=== PATIENT | female | born 1940 | race Two or more races ===

== ENCOUNTER 2016-10-30 21:15 | Inpatient (IN) | payer MEDICARE ==
--- NOTE | ~2016-10-30 | DS ---
Discharge Summary [facility] [address] [place]. [address] NAME: BRITTANY MUSE : 40 STATUS : DIS IN PAT#: [id number] AGE: 76 ADM/REG DATE : 10/30/16 MR#: [id number] REPORT SERV DATE: 11/05/16 DICTATED BY: UMM DEVLIN DATE: 11/04/16 REPORT STATUS : Draft TRANSCRIBED BY: MODL DATE: 11/04/16 ADMISSION DATE: 10/30/2016 DISCHARGE DATE: 11/04/2016 DISCHARGE DIAGNOSIS: 1. Acute hypercapnic respiratory failure, status post intubation expiration improving. 2. Chronic kidney disease 4, at the baseline. 3. Hypertension, medication treatment was changed to Norvasc. 4. Cerebrovascular accident, it is chronic, had stroke symptoms after her extubation, but had evaluation for the new stroke, but there is no evidence of acute stroke. 5. History of cerebrovascular disease with a history of an angioplasty on both carotid arteries, repeated ultrasound was negative for any stenosis. CONSULTANTS: Luiz Sales M.D. critical care management. HISTORY OF PRESENT ILLNESS: This is a 76-year-old, female patient, who came to the hospital and was intubated due to the hypercapnic respiratory failure and admitted in ICU. Please see dictated H and P done by Dr. Rivas. HOSPITAL COURSE: She was treated and supportive care with mechanical ventilation and improved and extubated. After the extubation, she was transferred out of the unit. She is managed with extra diuretics while she was in the ICU. Overall, she had improvement. After she was transferred out of the unit, she complains of right-sided weakness. She did have a history of CVA affecting her right side, but improved. Therefore had to go to get the new evaluation for the new stroke. Her MRI did not show any new acute stroke. Her carotid artery did not show any new stenosis. She has been treated with carotid stenosis in the past with Dr. Chow a few years ago. Overall has no evidence of acute stroke. Seen by Physical Therapy and Occupational Therapy in the hospital. Recommend outpatient physical therapy. She is back to her baseline. Therefore, she will be discharged to home with a prescription of the outpatient therapy and recommendation. DISCHARGE MEDICATIONS: 1. Norvasc 5 mg twice a day. 2. Aspirin 81 mg once a day. 3. Lipitor 80 mg once at nighttime. 4. Plavix 75 mg once a day. 5. Remeron 50 mg once at bedtime. 6. Lopressor 25 mg twice a day. 7. Protonix 20 mg twice a day. 8. Zoloft 50 mg once a day. 9. Ultram 50 mg as needed. 10.Robitussin as needed. 11.Furosemide 20 mg Friday, Friday, Friday. DISPOSITION: Patient is discharged to home with outpatient physical therapy with followup Discharge Summary [address] [facility] [address] NAME: BRITTANY MUSE : 40 STATUS : DIS IN PAT#: [id number] AGE: 76 ADM/REG DATE : 10/30/16 MR#: [id number] REPORT SERV DATE: 11/05/16 DICTATED BY: UMM DEVLIN DATE: 11/04/16 REPORT STATUS : Draft TRANSCRIBED BY: DAVID DATE: 11/04/[address] Sales and associates in the office. TIME SPENT: More than 30 minutes in coordination and education. EKL/DAVID Umm Devlin M.D. / [id number] CC: Brice Rivas M.D.
--- NOTE | ~2016-10-30 | HP ---
History And Physical [facility] [address] [place]. [address] NAME: BRITTANY MUSE : 40 STATUS : ADM IN [facility]#: [id number] AGE: 76 ADM/REG DATE : 10/30/16 MR#: [id number] REPORT SERV DATE: 10/31/16 DICTATED BY: TATE RIVAS DATE: 10/30/16 REPORT STATUS : Draft TRANSCRIBED BY: MODMary Alice DATE: 10/30/16 DATE OF ADMISSION: 10/30/2016 REASON FOR ADMISSION: Acute hypercapnic respiratory failure requiring intubation and mechanical ventilation. HISTORY OF PRESENT ILLNESS: Ms Muse is a 76-year-old woman with recent hospitalization for acute cardiac decompensation mediated by tachycardia. She was found to have tachycardia mediated congestive heart failure, had improvement with treatment of her abnormal rhythm and was discharged to home. She quit smoking during that hospitalization. Yesterday, she started having some dyspnea and today had worsening coughing, decreased alertness, significant dyspnea, and tachypnea and increased work of breathing. She was brought in by her family because of the worsening dyspnea, had increased work of breathing. Initially, she was saturating okay on supplemental oxygen, but was found to be hypercapnic, acidemic, and started desaturating on high-flow oxygen, so she was intubated and placed on mechanical ventilation and stabilized. Following stabilization, we were consulted to evaluate the patient for admission to the ICU. The patient was hypertensive, but improving, sedated, and on mechanical ventilation. PAST MEDICAL HISTORY: Significant for the recent episode of congestive heart failure. She has hypertension, diabetes, chronic kidney disease stage III, peripheral vascular disease, remote CVA, hypercholesterolemia, and acid reflux. SOCIAL HISTORY: She is a former smoker, having quit on her last hospitalization in the middle of October and up to that point had a 50- to 60-pack year history of smoking. No alcohol abuse. She has supportive family who is at her bedside. FAMILY HISTORY: Significant for diabetes and coronary artery disease. REVIEW OF SYSTEMS: Review of 10 systems was performed and is positive for what was noted above. PHYSICAL EXAMINATION: GENERAL: She is sedated, intubated, on mechanical ventilation. She is hypertensive. She seems well synchronized and comfortable with the ventilator. HEENT: Normocephalic and atraumatic. NECK: Supple. No lymphadenopathy. No JVD. CHEST: Symmetrical with good expansion bilaterally. LUNGS: Have a prolonged expiratory phase. Bilateral expiratory wheezes and occasional rare crackles. CARDIOVASCULAR: She has S1 and S2, which are regular rate and rhythm. ABDOMEN: Benign. EXTREMITIES: She has no edema, no clubbing, and no cyanosis. ASSESSMENT AND PLAN: Acute respiratory failure. She has acute on chronic hypercapnic respiratory failure complicated by some acidemia which is metabolic and respiratory, some of History And Physical [address] [address] NAME: BRITTANY MUSE : 40 STATUS : ADM IN PAT#: [id number] AGE: 76 ADM/REG DATE : 10/30/16 MR#: [id number] REPORT SERV DATE: 10/31/16 DICTATED BY: TATE RIVAS DATE: 10/30/16 REPORT STATUS : Draft TRANSCRIBED BY: DAVID DATE: 10/30/16 which are probably due to her chronic kidney disease. She has faint infiltrate on the right base. Whether it asymmetric edema or an early pneumonia is unclear, since her procalcitonin at this time is not elevated, but she does have the very long history of smoking and significant wheezing, so we will treat her for an acute exacerbation of chronic obstructive pulmonary disease as well as possible early pneumonia. We have requested series of BNPs for monitoring of possible exacerbations of her heart disease and limited echocardiogram in the morning. We have started her on systemic steroids, bronchodilators, and antibiotics for her acute exacerbation of chronic obstructive pulmonary disease and requested consultation by Nephrology in the morning because of her chronic kidney disease with worsening hyperkalemia and acidemia. DANGELO/DAVID Tate Rivas M.D. / [id number] CC: Hussein Booth DO
--- NOTE | ~2016-10-30 | CN ---
Consultation Report [facility] [address] [place]. [address] NAME: BRITTANY MUSE : 40 STATUS : ADM IN [facility]#: [id number] AGE: 76 ADM/REG DATE : 10/30/16 MR#: [id number] REPORT SERV DATE: 10/31/16 DICTATED BY: KRISTAL GRADY DATE: 10/31/16 REPORT STATUS : Draft TRANSCRIBED BY: MODL DATE: 10/31/16 NEPHROLOGY CONSULTATION NOTE DATE OF CONSULTATION: 10/31/2016 INDICATION FOR CONSULTATION: Chronic kidney disease. HISTORY OF PRESENT ILLNESS: Ms. Muse is a 76-year-old female who had been previously seen for CKD in May and was discharged from [facility] on 11/21/2016. At that time, she underwent renal artery Doppler and postvoid residual scan which demonstrated no abnormalities, specifically no renal artery stenosis. She had been seen in October of 2012 with a creatinine of 1.46 to 1.72 and during her hospitalization, her creatinine ranged between 2 and 2.76 and at the time of release, she was at 2.16. Her admission creatinine is 2.26. She presented with shortness of breath and required intubation for hypoxemic respiratory failure. PAST MEDICAL HISTORY: 1. CKD stage 4, baseline creatinine 2.0 to 2.5. 2. Type 2 diabetes mellitus. 3. Hypertension. 4. Peripheral vascular disease with right superficial femoral HIM DIRECTOR. 5. Bilateral carotid artery stents. 6. Right CEA. 7. Remote cerebrovascular accident. 8. Hyperlipidemia. 9. Gastroesophageal reflux disease. 10.Anemia. 11.Chronic obstructive pulmonary disease. 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 13.Coronary artery disease by cath in October 2016. PAST SURGICAL HISTORY: Right total knee arthroplasty; hysterectomy; right superficial femoral HIM DIRECTOR; bilateral carotid stents, and right CEA history. SOCIAL HISTORY: The patient uses one-half pack of cigarettes per day for 50 to 60 years. No alcohol or illicit drugs. She is , with supportive daughters per chart. FAMILY HISTORY: Per chart. Positive for diabetes, hypertension, Parkinson's disease with sister having KS in her 40s. No history of renal disease. REVIEW OF SYSTEMS: Unable to obtain. The patient is sedated on vent. PHYSICAL EXAMINATION: Consultation Report [facility] [address] [facility] [place]. [address] NAME: BRITTANY MUSE : 40 STATUS : ADM IN PAT#: [id number] AGE: 76 ADM/REG DATE : 10/30/16 MR#: [id number] REPORT SERV DATE: 10/31/16 DICTATED BY: KRISTAL GRADY DATE: 10/31/16 REPORT STATUS : Draft TRANSCRIBED BY: DAVID DATE: 10/31/16 VITAL SIGNS: Blood pressure 166/74, temperature 100 with T-max of 100.3, respiratory rate 16 per vent, and pulse 81. HEENT: female, sedated on vent. HEENT: Eyes, no scleral icterus. Pupils reactive. Nares with no lesions. Mouth with ET and OG tubes in place. NECK: Right carotid endarterectomy scar with bruit. Left carotid bruit noted. VASCULATURE: Axillary abdomen femoral bruits. CARDIAC: Regular rate and rhythm, 1/6 systolic ejection murmur. No rub. No gallop. LUNGS: With bilateral crackles with a few scattered rhonchi. ABDOMEN: Supple. Normoactive bowel sounds. Nontender. No hepatosplenomegaly. No masses. Positive for abdominal bruit. AND RECTAL: Not performed. Indwelling Buenrostro present. EXTREMITIES: No edema. No calf tenderness. DERMIS: No rash. No skin lesions. MUSCULOSKELETAL: No deformity. NEUROLOGIC: Unable to evaluate with the patient sedated. IMPRESSION: 1. CKD stage 4, stable at baseline with baseline creatinine ranging 2.0 to 2.5. 2. Acute hypoxemic respiratory failure, on vent. 3. Pulmonary edema. 4. Hypertension. 5. Peripheral vascular disease with history of right superficial femoral HIM DIRECTOR, bilateral carotid stents, right CEA. 6. Anemia. 7. Moderate COPD. 8. Remote cerebrovascular accident. 9. Status post ablation for AV hai reentry SVT. 10.Coronary artery disease. 11.Gastroesophageal reflux disease. 12.Dyslipidemia. PLAN: 1. Concur with diuretics. 2. Labs. CG/DAVID Kristal Grady M.D. / [id number] Consultation Report [facility] [address] [address] NAME: BRITTANY MUSE : 40 STATUS : ADM IN PAT#: [id number] AGE: 76 ADM/REG DATE : 10/30/16 MR#: [id number] REPORT SERV DATE: 10/31/16 DICTATED BY: KRISTAL GRADY DATE: 10/31/16 REPORT STATUS : Draft TRANSCRIBED BY: MODL DATE: 10/31/16 CC: Hussein Booth DO
[~2016-10-30 21:15] MED LIST: APRES50 PO; ASAB PO; COREG25 PO; HABIT14 TOP; HCTZ25B PO; LIPITOR40 PO; LOP25 PO; LORTAB10 PO; NEUR100 PO; NORV5 PO; PLAVIX PO; PRIN20 PO; PROTONIX20 MG PO; REM15 PO; SPIRO25 PO; ULTRAM; ULTRAM50 PO; ZESTORETIC1 TA1 PO; ZOCOR20 PO; ZOL50 PO
[2016-10-30] MEDS ORDERED: LIPITOR80 MG PO (21:54)
[2016-10-30] MEDS ORDERED: PROTONIX20 MG PO (21:54)
[2016-10-30] MEDS ORDERED: ZOL50 PO (21:55)
[2016-10-30] MEDS ORDERED: REM15 PO (21:55)
[2016-10-30] MEDS ORDERED: ASAB PO (21:55)
[2016-10-30] MEDS ORDERED: ULTRAM50 PO (21:55)
[2016-10-30] MEDS ORDERED: PLAVIX PO (21:55)
[2016-10-30] MEDS ORDERED: LOP25 PO (21:56)
[2016-10-30] MEDS ORDERED: ROBITUSSIN PO (21:56)
[2016-10-30] MEDS ORDERED: HABIT14 TOP (21:56)
[2016-10-30 22:01] LABS: BE (BASE EXCESS) -11.5 MEQ/L (0 +/- 2.5); CARBOXYHEMOGLOBIN 1.1 % (0-3); DEVICE NRB; HCO3 (ACTUAL BICARBONATE) 20.8 MEQ/L (23-27); HEMOBLOGIN CONTENT 11.2 G/DL (12-16); INSTRUMENT SERIAL # 8087; METHEMOGLOBIN 0.3 % (0-3); OPERATOR ID 17589; PCO2 (CO2 TENSION) 87 MMHG (35-45); SAMPLE Arterial
[2016-10-30 22:02] LABS: ALLENS TEST Pos
[2016-10-30 22:02] LABS: BASOPHILS 0.8 %; BASOPHILS ABSOLUTE 0.09 10/3/uL (0.0-0.16); EOSINOPHILS 2.2 %; EOSINOPHILS ABSOLUTE 0.24 10/3/uL (0.0-0.53); IMMATURE GRANULOCYTES 0.2 %; IMMATURE GRANULOCYTES ABSOLUTE 0.02 10/3/uL (0.0-0.11); LYMPHOCYTES 37.6 %; LYMPHOCYTES ABSOLUTE 4.03 10/3/uL (0.67-4.30); MEAN CORPUSCULAR HEMOGLOB 30.9 pg (26.0-34.0); MEAN CORPUSCULAR VOLUME 93.5 fL (80-100); MEAN PLATELET VOLUME 10.7 fL (9.2-13.0); MONOCYTES 6.1 %; MONOCYTES ABSOLUTE 0.65 10/3/uL (0.21-1.20); NEUTROPHILS 53.1 %; NEUTROPHILS ABSOLUTE 5.68 10/3/uL (2.02-8.40); RBC DISTRIBUTION WIDTH 13.1 % (12.0-16.0)
[2016-10-30 22:03] LABS: ER CBC TAT 0 Hrs 08 Mins; HEMATOCRIT 34.5 % (36.0-48.0); HEMOGLOBIN 11.4 g/dL (12.0-16.0); MANUAL DIFF NO %; PLATELET COUNT 267 10/3/uL (150-400); RED CELL COUNT 3.69 10/6/uL (4.0-5.6); WHITE BLOOD CELLS 10.7 10/3/uL (4.5-10.5)
[2016-10-30 22:04] LABS: ALLENS TEST Pos; BE (BASE EXCESS) -11.8 MEQ/L (0 +/- 2.5); CARBOXYHEMOGLOBIN 0.5 % (0-3); HCO3 (ACTUAL BICARBONATE) 16.3 MEQ/L (23-27); HEMOBLOGIN CONTENT 10.2 G/DL (12-16); INSTRUMENT SERIAL # 8087; METHEMOGLOBIN 0.3 % (0-3); MODE CMV; O2 CONTENT 15.1 VOL% (18-24); OPERATOR ID 17589; PCO2 (CO2 TENSION) 46 MMHG (35-45); PO2 (O2 TENSION) 352 MMHG (79-93); SAMPLE Arterial; TIDAL VOLUME 500 ML; pH 7.17 (7.37-7.43)
[2016-10-30 22:08] LABS: INTERNATIONAL NORMAL RATI 1.1 UNITS (-); PROTIME (NOT ORD) 13.7 SEC (12.0-14.5)
[2016-10-30 22:09] LABS: PARTIAL THROMBO TIME 35.7 SEC (22.5-37.2)
[2016-10-30 22:16] LABS: INFLUENZA A SCREEN NEGATIVE (NEGATIVE); INFLUENZA B SCREEN NEGATIVE (NEGATIVE)
[2016-10-30 22:16] LABS: LACTATE 1.5 MMOL/L (0.3-2.4)
[2016-10-30 22:18] LABS: CALCIUM, SERUM 9.5 MG/DL (8.5-10.4); CHLORIDE, SERUM 108 MMOL/L (96-112); CO2 (CARBON DIOXIDE) 21 MMOL/L (24-34); CREATININE 2.31 MG/DL (0.55-1.02); GFR AFRICAN AMERICAN 23 ML/MIN (>=60); GFR NON AFRICAN AMERICAN 20 ML/MIN (>=60); SGOT(AST) 31 U/L (5-40); SGPT(ALT) 37 U/L (5-65); TOTAL BILIRUBIN 0.3 MG/DL (0-1.2)
[2016-10-30 22:19] LABS: ALBUMIN 4.2 G/DL (3.5-5.0); ALKALINE PHOSPHATASE 120 U/L (45-117); BUN (BLOOD UREA NITROGEN) 48 MG/DL (6-23); GLOBULIN 4.2 G/DL (2.5-4.1); GLUCOSE, SERUM 146 MG/DL (60-99); SODIUM, SERUM 139 MMOL/L (135-148); TOTAL PROTEIN 8.4 G/DL (6.0-8.5)
[2016-10-30 22:42] LABS: ASCORBIC ACID (UR NOT ORDER) NEG (NEG); BILIRUBIN, URINE NEGATIVE (NEG); ER URINALYSIS TAT 0 Hrs 16 Mins; KETONE, URINE NEGATIVE (NEG); LEUKOCYTE ESTERASE(NOT OR NEG (NEG); NITRITE (URINE) NEG (NEG); WBC (NOT ORDERED) (RFLEX) < 1 (0-5)
[2016-10-30 22:47] LABS: PROCALCITONIN <0.05 ng/mL (<0.5)
[2016-10-31 04:05] LABS: BASOPHILS 0.1 %; BASOPHILS ABSOLUTE 0.01 10/3/uL (0.0-0.16); EOSINOPHILS 0.1 %; EOSINOPHILS ABSOLUTE 0.01 10/3/uL (0.0-0.53); IMMATURE GRANULOCYTES 0.1 %; IMMATURE GRANULOCYTES ABSOLUTE 0.01 10/3/uL (0.0-0.11); LYMPHOCYTES 3.8 %; LYMPHOCYTES ABSOLUTE 0.29 10/3/uL (0.67-4.30); MEAN CORPUS HGB CONC 32.4 g/dL (32.0-36.0); MEAN CORPUSCULAR HEMOGLOB 29.8 pg (26.0-34.0); MEAN CORPUSCULAR VOLUME 91.9 fL (80-100); MEAN PLATELET VOLUME 10.5 fL (9.2-13.0); MONOCYTES 2.5 %; MONOCYTES ABSOLUTE 0.19 10/3/uL (0.21-1.20); NEUTROPHILS 93.4 %; NEUTROPHILS ABSOLUTE 7.08 10/3/uL (2.02-8.40); PLATELET COUNT 192 10/3/uL (150-400); RBC DISTRIBUTION WIDTH 13.3 % (12.0-16.0); WHITE BLOOD CELLS 7.6 10/3/uL (4.5-10.5)
[2016-10-31 04:10] LABS: HEMATOCRIT 26.2 % (36.0-48.0); HEMOGLOBIN 8.5 g/dL (12.0-16.0); MANUAL DIFF NO %; RED CELL COUNT 2.85 10/6/uL (4.0-5.6)
[2016-10-31 04:24] LABS: BUN (BLOOD UREA NITROGEN) 49 MG/DL (6-23); CALCIUM, SERUM 8.9 MG/DL (8.5-10.4); CHLORIDE, SERUM 113 MMOL/L (96-112); CO2 (CARBON DIOXIDE) 22 MMOL/L (24-34); CREATININE 2.26 MG/DL (0.55-1.02); GFR AFRICAN AMERICAN 24 ML/MIN (>=60); GFR NON AFRICAN AMERICAN 20 ML/MIN (>=60); SGOT(AST) 29 U/L (5-40); SGPT(ALT) 26 U/L (5-65); SODIUM, SERUM 144 MMOL/L (135-148); TOTAL BILIRUBIN 0.4 MG/DL (0-1.2)
[2016-10-31 04:38] LABS: ALBUMIN 3.1 G/DL (3.5-5.0); ALKALINE PHOSPHATASE 89 U/L (45-117); GLUCOSE, SERUM 182 MG/DL (60-99); POTASSIUM, SERUM 4.4 MMOL/L (3.5-5.3); TOTAL PROTEIN 6.1 G/DL (6.0-8.5)
[2016-10-31 05:49] LABS: PROCALCITONIN <0.05 ng/mL (<0.5)
[2016-10-31 06:59] LABS: ALLENS TEST Pos; BE (BASE EXCESS) -5.5 MEQ/L (0 +/- 2.5); CARBOXYHEMOGLOBIN 0.3 % (0-3); HCO3 (ACTUAL BICARBONATE) 19.3 MEQ/L (23-27); HEMOBLOGIN CONTENT 9.5 G/DL (12-16); INSTRUMENT SERIAL # 11843; METHEMOGLOBIN 0.7 % (0-3); MODE CMV; O2 CONTENT 12.2 VOL% (18-24); OPERATOR ID 13744; PCO2 (CO2 TENSION) 35 MMHG (35-45); PO2 (O2 TENSION) 67 MMHG (79-93); SAMPLE Arterial; TIDAL VOLUME 500 ML; pH 7.36 (7.37-7.43)
[2016-10-31 17:24] LABS: BASOPHILS 0 %; EOSINOPHILS 0 %; HEMATOCRIT 27.4 % (36.0-48.0); HEMOGLOBIN 8.8 g/dL (12.0-16.0); IMMATURE GRANULOCYTES 0.1 %; IMMATURE GRANULOCYTES ABSOLUTE 0.01 10/3/uL (0.0-0.11); LYMPHOCYTES 4.9 %; LYMPHOCYTES ABSOLUTE 0.35 10/3/uL (0.67-4.30); MEAN CORPUS HGB CONC 32.1 g/dL (32.0-36.0); MEAN CORPUSCULAR HEMOGLOB 29.7 pg (26.0-34.0); MEAN CORPUSCULAR VOLUME 92.6 fL (80-100); MEAN PLATELET VOLUME 10.8 fL (9.2-13.0); MONOCYTES 2.1 %; MONOCYTES ABSOLUTE 0.15 10/3/uL (0.21-1.20); NEUTROPHILS 92.9 %; NEUTROPHILS ABSOLUTE 6.58 10/3/uL (2.02-8.40); PLATELET COUNT 206 10/3/uL (150-400); RBC DISTRIBUTION WIDTH 13.5 % (12.0-16.0); RED CELL COUNT 2.96 10/6/uL (4.0-5.6); WHITE BLOOD CELLS 7.1 10/3/uL (4.5-10.5)
[2016-10-31 17:26] LABS: MANUAL DIFF NO %
[2016-10-31 17:41] LABS: CALCIUM, SERUM 8.6 MG/DL (8.5-10.4); CHLORIDE, SERUM 113 MMOL/L (96-112); CO2 (CARBON DIOXIDE) 20 MMOL/L (24-34); CREATININE 2.38 MG/DL (0.55-1.02); GFR AFRICAN AMERICAN 22 ML/MIN (>=60); GFR NON AFRICAN AMERICAN 19 ML/MIN (>=60); PHOSPHORUS, SERUM 3.2 MG/DL (2.5-4.5); PREALBUMIN 18.1 MG/DL (17.0-43.0); SODIUM, SERUM 147 MMOL/L (135-148)
[2016-10-31 17:42] LABS: BUN (BLOOD UREA NITROGEN) 44 MG/DL (6-23); GLUCOSE, SERUM 252 MG/DL (60-99); POTASSIUM, SERUM 3.4 MMOL/L (3.5-5.3)
[2016-11-01 04:14] LABS: BASOPHILS 0 %; EOSINOPHILS 0 %; HEMATOCRIT 25.5 % (36.0-48.0); HEMOGLOBIN 8.4 g/dL (12.0-16.0); IMMATURE GRANULOCYTES 0.3 %; IMMATURE GRANULOCYTES ABSOLUTE 0.03 10/3/uL (0.0-0.11); LYMPHOCYTES 2.9 %; LYMPHOCYTES ABSOLUTE 0.34 10/3/uL (0.67-4.30); MEAN CORPUS HGB CONC 32.9 g/dL (32.0-36.0); MEAN CORPUSCULAR HEMOGLOB 30.5 pg (26.0-34.0); MEAN CORPUSCULAR VOLUME 92.7 fL (80-100); MEAN PLATELET VOLUME 10.4 fL (9.2-13.0); MONOCYTES 2.5 %; MONOCYTES ABSOLUTE 0.29 10/3/uL (0.21-1.20); NEUTROPHILS 94.3 %; NEUTROPHILS ABSOLUTE 11.16 10/3/uL (2.02-8.40); PLATELET COUNT 201 10/3/uL (150-400); RBC DISTRIBUTION WIDTH 13.6 % (12.0-16.0); RED CELL COUNT 2.75 10/6/uL (4.0-5.6)
[2016-11-01 04:23] LABS: MANUAL DIFF NO %; WHITE BLOOD CELLS 11.8 10/3/uL (4.5-10.5)
[2016-11-01 04:39] LABS: ALBUMIN 2.9 G/DL (3.5-5.0); CALCIUM, SERUM 8.9 MG/DL (8.5-10.4); CHLORIDE, SERUM 112 MMOL/L (96-112); CO2 (CARBON DIOXIDE) 23 MMOL/L (24-34); CREATININE 2.47 MG/DL (0.55-1.02); GFR AFRICAN AMERICAN 21 ML/MIN (>=60); GFR NON AFRICAN AMERICAN 18 ML/MIN (>=60); PHOSPHORUS, SERUM 3.7 MG/DL (2.5-4.5); POTASSIUM, SERUM 3.7 MMOL/L (3.5-5.3); SODIUM, SERUM 145 MMOL/L (135-148)
[2016-11-01 04:42] LABS: BUN (BLOOD UREA NITROGEN) 49 MG/DL (6-23); GLUCOSE, SERUM 191 MG/DL (60-99)
[2016-11-02 06:54] LABS: BASOPHILS 0 %; EOSINOPHILS 0 %; HEMATOCRIT 25.5 % (36.0-48.0); HEMOGLOBIN 8.7 g/dL (12.0-16.0); IMMATURE GRANULOCYTES 0.3 %; IMMATURE GRANULOCYTES ABSOLUTE 0.05 10/3/uL (0.0-0.11); LYMPHOCYTES 2.8 %; LYMPHOCYTES ABSOLUTE 0.45 10/3/uL (0.67-4.30); MEAN CORPUS HGB CONC 34.1 g/dL (32.0-36.0); MEAN CORPUSCULAR HEMOGLOB 31.4 pg (26.0-34.0); MEAN CORPUSCULAR VOLUME 92.1 fL (80-100); MEAN PLATELET VOLUME 10.8 fL (9.2-13.0); MONOCYTES 1.5 %; MONOCYTES ABSOLUTE 0.24 10/3/uL (0.21-1.20); NEUTROPHILS 95.4 %; NEUTROPHILS ABSOLUTE 15.16 10/3/uL (2.02-8.40); PLATELET COUNT 233 10/3/uL (150-400); RBC DISTRIBUTION WIDTH 13.9 % (12.0-16.0); RED CELL COUNT 2.77 10/6/uL (4.0-5.6); WHITE BLOOD CELLS 15.9 10/3/uL (4.5-10.5)
[2016-11-02 06:55] LABS: MANUAL DIFF NO %
[2016-11-02 07:09] LABS: ALBUMIN 2.7 G/DL (3.5-5.0); CALCIUM, SERUM 9.3 MG/DL (8.5-10.4); CHLORIDE, SERUM 110 MMOL/L (96-112); CO2 (CARBON DIOXIDE) 23 MMOL/L (24-34); GFR AFRICAN AMERICAN 21 ML/MIN (>=60); GFR NON AFRICAN AMERICAN 18 ML/MIN (>=60); PHOSPHORUS, SERUM 4.5 MG/DL (2.5-4.5); POTASSIUM, SERUM 3.8 MMOL/L (3.5-5.3); SODIUM, SERUM 144 MMOL/L (135-148)
[2016-11-02 07:11] LABS: BUN (BLOOD UREA NITROGEN) 53 MG/DL (6-23); GLUCOSE, SERUM 128 MG/DL (60-99)
[2016-11-03 04:41] LABS: BASOPHILS 0 %; EOSINOPHILS 0 %; HEMOGLOBIN 8.4 g/dL (12.0-16.0); IMMATURE GRANULOCYTES 0.3 %; IMMATURE GRANULOCYTES ABSOLUTE 0.04 10/3/uL (0.0-0.11); LYMPHOCYTES 4.3 %; LYMPHOCYTES ABSOLUTE 0.55 10/3/uL (0.67-4.30); MEAN CORPUS HGB CONC 33.6 g/dL (32.0-36.0); MEAN CORPUSCULAR HEMOGLOB 31.2 pg (26.0-34.0); MEAN CORPUSCULAR VOLUME 92.9 fL (80-100); MEAN PLATELET VOLUME 10.2 fL (9.2-13.0); MONOCYTES 3.2 %; MONOCYTES ABSOLUTE 0.41 10/3/uL (0.21-1.20); NEUTROPHILS 92.2 %; NEUTROPHILS ABSOLUTE 11.81 10/3/uL (2.02-8.40); PLATELET COUNT 203 10/3/uL (150-400); RBC DISTRIBUTION WIDTH 13.8 % (12.0-16.0); RED CELL COUNT 2.69 10/6/uL (4.0-5.6); WHITE BLOOD CELLS 12.8 10/3/uL (4.5-10.5)
[2016-11-03 04:43] LABS: MANUAL DIFF NO %
[2016-11-03 04:57] LABS: A/G RATIO 0.9 (0.7-1.9); ALBUMIN 2.7 G/DL (3.5-5.0); CALCIUM, SERUM 8.9 MG/DL (8.5-10.4); CHLORIDE, SERUM 110 MMOL/L (96-112); CO2 (CARBON DIOXIDE) 24 MMOL/L (24-34); CREATININE 2.35 MG/DL (0.55-1.02); GFR AFRICAN AMERICAN 23 ML/MIN (>=60); GFR NON AFRICAN AMERICAN 19 ML/MIN (>=60); HDL CHOLESTEROL 56 MG/DL (> 49); POTASSIUM, SERUM 4.2 MMOL/L (3.5-5.3); SGOT(AST) 23 U/L (5-40); SGPT(ALT) 23 U/L (5-65); SODIUM, SERUM 146 MMOL/L (135-148); TOTAL BILIRUBIN 0.4 MG/DL (0-1.2); TOTAL PROTEIN 5.7 G/DL (6.0-8.5)
[2016-11-03 04:58] LABS: ALKALINE PHOSPHATASE 62 U/L (45-117); BUN (BLOOD UREA NITROGEN) 61 MG/DL (6-23); CHOL/HDL RATIO(NOT ORDER) 2.1 (0-5); CHOLESTEROL 117 MG/DL (< 200); GLUCOSE, SERUM 99 MG/DL (60-99); LDL CHOLESTEROL 43 MG/DL (< 130); NON-HDL CHOLESTEROL 61 MG/DL (< 160); PHOSPHORUS, SERUM 3.5 MG/DL (2.5-4.5); TRIGLYCERIDE 91 MG/DL (< 150)
[2016-11-04 06:05] LABS: BASOPHILS 0 %; EOSINOPHILS 0.1 %; EOSINOPHILS ABSOLUTE 0.01 10/3/uL (0.0-0.53); HEMATOCRIT 25.7 % (36.0-48.0); HEMOGLOBIN 8.5 g/dL (12.0-16.0); IMMATURE GRANULOCYTES 0.3 %; IMMATURE GRANULOCYTES ABSOLUTE 0.03 10/3/uL (0.0-0.11); LYMPHOCYTES 21.7 %; LYMPHOCYTES ABSOLUTE 2.27 10/3/uL (0.67-4.30); MANUAL DIFF NO %; MEAN CORPUS HGB CONC 33.1 g/dL (32.0-36.0); MEAN CORPUSCULAR HEMOGLOB 30.9 pg (26.0-34.0); MEAN CORPUSCULAR VOLUME 93.5 fL (80-100); MEAN PLATELET VOLUME 10.4 fL (9.2-13.0); MONOCYTES 6.3 %; MONOCYTES ABSOLUTE 0.66 10/3/uL (0.21-1.20); NEUTROPHILS 71.6 %; NEUTROPHILS ABSOLUTE 7.48 10/3/uL (2.02-8.40); PLATELET COUNT 207 10/3/uL (150-400); RBC DISTRIBUTION WIDTH 13.7 % (12.0-16.0); RED CELL COUNT 2.75 10/6/uL (4.0-5.6); WHITE BLOOD CELLS 10.5 10/3/uL (4.5-10.5)
[2016-11-04 06:16] LABS: ALBUMIN 2.7 G/DL (3.5-5.0); BUN (BLOOD UREA NITROGEN) 60 MG/DL (6-23); CALCIUM, SERUM 8.8 MG/DL (8.5-10.4); CHLORIDE, SERUM 113 MMOL/L (96-112); CO2 (CARBON DIOXIDE) 24 MMOL/L (24-34); CREATININE 2.43 MG/DL (0.55-1.02); GFR AFRICAN AMERICAN 22 ML/MIN (>=60); GFR NON AFRICAN AMERICAN 19 ML/MIN (>=60); POTASSIUM, SERUM 3.6 MMOL/L (3.5-5.3); SODIUM, SERUM 147 MMOL/L (135-148)
[2016-11-04 06:17] LABS: GLUCOSE, SERUM 51 MG/DL (60-99); PHOSPHORUS, SERUM 2.3 MG/DL (2.5-4.5)
[2016-11-04] MEDS ORDERED: NORV5 PO (13:45)
[2016-11-04] MEDS ORDERED: L20 PO (13:45)
[2016-11-04] MEDS ORDERED: P10 PO (13:48)
== END 2016-11-04 17:42 | disposition home or self-care (01) | DRG 208 ==
LOC: ER 21:15 → CCU 22:47 → CVICU 23:24 → 5NO 11-01 14:35
PROVIDERS: Hospitalist; Internal Medicine; Internal Medicine Critical Care Medicine; Internal Medicine Pulmonary Disease
PROC: 5A1935Z Respiratory Ventilation, Less than 24 Consecutive Hours (ICD-10-PCS; principal; 2016-10-30)
PROC: 0BH17EZ Insertion of Endotracheal Airway into Trachea, Via Natural or Artificial Opening (ICD-10-PCS; 2016-10-30)
PROC: 02HV33Z Insertion of Infusion Device into Superior Vena Cava, Percutaneous Approach (ICD-10-PCS; 2016-10-31)
PROC: 4A02X4A Measurement of Cardiac Electrical Activity, Guidance, External Approach (ICD-10-PCS; 2016-10-31)
DX: J96.22 Acute and chronic respiratory failure with hypercapnia (principal); J18.9 Pneumonia, unspecified organism; I50.33 Acute on chronic diastolic (congestive) heart failure; I13.0 Hypertensive heart and chronic kidney disease with heart failure and stage 1 through stage 4 chronic kidney disease, or unspecified chronic kidney disease; N18.3 Chronic kidney disease, stage 3 (moderate); I69.354 Hemiplegia and hemiparesis following cerebral infarction affecting left non-dominant side; J44.0 Chronic obstructive pulmonary disease with (acute) lower respiratory infection; J44.1 Chronic obstructive pulmonary disease with (acute) exacerbation; I73.9 Peripheral vascular disease, unspecified; E78.00 Pure hypercholesterolemia, unspecified; K21.9 Gastro-esophageal reflux disease without esophagitis; Z87.891 Personal history of nicotine dependence
CPT/HCPCS: 31500; 31720; 36569; 36600; 70551; 71010; 72141; 74000; 80048; 80053; 80061; 80069; 81001; 82330; 82803; 82805; 82947; 82962; 83605; 83735; 83880; 84100; 84132; 84134; 84145; 84295; 85014; 85025; 85610; 85730; 87040; 87641; 87804; 93005; 93321; 93325; 93880; 94002; 94003; 94640; 94660; 94668; 94770; 96365; 96368; 96375; 96376; 97161-GP; 97166-GO; 97535-GO; 99291; 99292; A9270-GY; C1751; C1894; C8924; C9113; J0330; J0360; J0456; J0610; J0692; J1205; J1610; J2405; J2920; J2930; J3010; J3370; Q9957